=== PATIENT | female | born 1995 | race Caucasian/White ===

== ENCOUNTER 2025-01-06 14:18 | Emergency (ER) | payer SELFPAY ==
[2025-01-06 14:37] VITALS: BP 165/99; PULSE 99; RESP 17; TEMP 36.4; O2SAT 99
--- NOTE | 2025-01-06 16:52 | ED_ITS ---
HPI - General Adult General Chief complaint: Eye Problems Stated complaint: R eye swellling 3 weeks Time Seen by Provider: 01/06/25 15:50 History of Present Illness HPI narrative: 29-year-old female presents to the emergency department for evaluation for suspected allergic reaction that has been ongoing for the last few weeks. Patient is unsure of the exact cause. Patient does report she does use fabric softeners, she does have a dog that sleeps in her bed. Patient denies any new soaps detergents or perfumes. Patient does report having previous issues with allergic reactions and dermatitis. History of eczema Related Data Allergies Allergy/AdvReac Type Severity Reaction Status Date / Time No Known Allergies Allergy Verified 01/06/25 14:40 Review of Systems Review of Systems: All systems reviewed & are unremarkable except as noted in HPI and below Exam Narrative: APPEARANCE: Well appearing, no pain, no distress, well-nourished. HEAD: normocephalic, atraumatic. EYES: PERRLA/EOMI, conjunctivae clear. NOSE: Normal no drainage EARS:TMS clear with good light reflex. THROAT: Pharynx clear, no exudate. NECK: Supple. No adenopathy, no masses. RESPIRATORY: Airway patent, respirations nonlabored. Clear to auscultation bilaterally, no rales, rhonchi, wheezing. CARDIOVASCULAR: Regular rate and rhythm without murmurs rubs or gallops. ABDOMINAL: Soft, nontender, nondistended, normal bowel sounds MUSCULOSKELETAL: Moves all extremities. Strength/ROM intact, No edema, No calf tenderness. NEURO: Alert. Cranial nerves II through XII intact. Good gait. Good coordination SKIN: Allergic dermatitis to face Course Vital Signs Vital signs: Vital Signs Temperature 97.5 F L 01/06/25 14:37 Pulse Rate 99 01/06/25 14:37 Respiratory Rate 17 01/06/25 14:37 Blood Pressure 165/99 H 01/06/25 14:37 Pulse Oximetry 99 01/06/25 14:37 Oxygen Delivery Room Air 01/06/25 14:37 Temperature 97.5 F L 01/06/25 14:37 Pulse Rate 99 01/06/25 14:37 Respiratory Rate 17 01/06/25 14:37 Blood Pressure 165/99 H 01/06/25 14:37 Pulse Oximetry 99 01/06/25 14:37 Oxygen Delivery Room Air 01/06/25 14:37 Medical Decision Making MDM Narrative Medical decision making narrative: 29-year-old female presents to the emergency department for evaluation for persistent allergic dermatitis rash to face. No concern for cellulitis. Patient was started on prednisone, patient was advised to attempt to find her trigger, patient was advised to take Benadryl. Patient was also encouraged to have follow-up with her primary care physician for additional outpatient allergic testing. All questions concerns were addressed. Differential Diagnosis Differential Diagnosis: Cellulitis, dermatitis, allergic reaction Vital Signs Vital Signs: Vital Signs Temperature 97.5 F L 01/06/25 14:37 Pulse Rate 99 01/06/25 14:37 Respiratory Rate 17 01/06/25 14:37 Blood Pressure 165/99 H 01/06/25 14:37 Pulse Oximetry 99 01/06/25 14:37 Oxygen Delivery Room Air 01/06/25 14:37 Temperature 97.5 F L 01/06/25 14:37 Pulse Rate 99 01/06/25 14:37 Respiratory Rate 17 01/06/25 14:37 Blood Pressure 165/99 H 01/06/25 14:37 Pulse Oximetry 99 01/06/25 14:37 Oxygen Delivery Room Air 01/06/25 14:37 Discharge Plan Discharge Clinical Impression: Allergic reaction, Allergic dermatitis Patient Disposition: Home Condition: Stable Instructions: Antibiotic Form, General Allergic Reaction (ED), Dermatitis (ED) Additional Instructions: Steroid as directed until completed. Benadryl as needed for itching. Have close follow-up with your primary care physician. You will need follow-up with an network security analyst as well. Patient Language: Sinhala Prescriptions: New prednisone 50 mg tablet 50 mg PO DAILY 5 Days Qty: 5 0RF Follow-up/Referrals: PHYSICIAN,SLIDE MACHINE TENDER [Primary Care Provider] -
--- OUTSIDE RECORDS SUMMARY | 2025-01-06 17:01 | XMS_ITS | Continuity of Care Document ---
Author Organization [facility] Address [address] [place] [id number] Phone Care Team Providers Care Correspondence Transcriber Name Role Phone Rosendo Washington Unavailable Unavailable Advance Directives Directive Yes / No Effective Date File Name No Information Encounters Encounter Description Practice Location Reason(s) For Visit Diagnoses Date Provider Providers Copied on Encounter [facility], [address] [place] [address], [id number], tel:[phone] *[facility] No Information Padmini Robbins. [address] [place] [address], [facility], . tel:[phone] Family History Family Member Type Diagnosis Age At Onset No Information Payers Payer name Insurance type Covered green party ID Authoriza tion(s) No Information Social History Type Description Quantity Date Captured Comments Sex Female Smoking Status No Information Chief Complaint And Reason For Visit No Information Reason For Referral Reason For Referral No Information History Of Present Illness Encounter Date Complaint History Of Prese nt Illness No Information Functional Status Date Functional Assessmen t No Information Instructions Date Instruction Additional Infor mation No Information Assessments Type Assessment Date No Information Patient Care Teams Name Effective Dates (start - stop) Status Members No Information
== END 2025-01-06 17:17 | disposition home or self-care (01) ==
LOC: ANHED 16:59
PROVIDERS: Emergency Provider Emergency Medicine
DX: L23.9 Allergic contact dermatitis, unspecified cause (principal)
CPT/HCPCS: 99283; J7512